=== PATIENT | male | born 1945 | race Two or more races ===

== ENCOUNTER → 2017-09-18 17:23 | Outpatient (CLI) | payer OTHER ==
[~2017-09-18] VITALS: Ht 152.4 cm; Wt 127.0 kg
[~2017-09-18 17:23] MED LIST: COZAAR50 MG; GABAPENTIN300 MG PO; GLIMEPIRIDE2 MG; ISOSORBIDE DINI30 MG; JANUMET 50-1,01 EACH PO; LIPITOR40 MG; LOPRESSOR25 MG PO; PLAVIX75 MG; PROSCAR5 MG; PROTONIX40 M1; TAMS0.4C; ZYLOPRIM300 MG
== END | disposition home or self-care (01) ==
LOC: PPHC 17:23
DX: M54.5 Low back pain (principal); Z76.0 Encounter for issue of repeat prescription

== ENCOUNTER → 2018-01-09 | Outpatient (CLI) | payer OTHER | END | disposition home or self-care (01) | LOC: PPHC 13:39 | DX: M54.2 Cervicalgia (principal); Z01.89 Encounter for other specified special examinations ==

== ENCOUNTER 2018-05-25 12:29 | Outpatient (CLI) | payer OTHER | END 2018-05-25 13:00 | disposition home or self-care (01) | LOC: SONOGRAMA 12:29 | DX: N20.0 Calculus of kidney (principal) ==

== ENCOUNTER 2018-09-09 14:03 | Outpatient (CLI) | payer OTHER | END 2018-09-09 14:19 | disposition home or self-care (01) | LOC: NUCLEAR 14:03 | DX: R42 Dizziness and giddiness (principal); I65.23 Occlusion and stenosis of bilateral carotid arteries ==

== ENCOUNTER 2018-10-12 10:01 | Outpatient (CLI) | payer OTHER | END 2018-10-12 10:03 | disposition home or self-care (01) | LOC: SONOGRAMA 10:01 | DX: N20.0 Calculus of kidney (principal) ==

== ENCOUNTER 2018-11-18 15:09 | Outpatient (CLI) | payer OTHER | END 2018-11-18 15:23 | disposition home or self-care (01) | LOC: RAD 501 15:09 | DX: R05 Cough (principal) ==

== ENCOUNTER → 2019-04-16 | Outpatient (CLI) | payer OTHER | END | disposition home or self-care (01) | LOC: RAD 16:00 | DX: M16.11 Unilateral primary osteoarthritis, right hip (principal) ==

== ENCOUNTER 2019-08-04 10:25 | Outpatient (CLI) | payer OTHER | END 2019-08-04 15:18 | disposition home or self-care (01) | LOC: TOM 10:25 | DX: J44.1 Chronic obstructive pulmonary disease with (acute) exacerbation (principal); F17.218 Nicotine dependence, cigarettes, with other nicotine-induced disorders ==

== ENCOUNTER 2019-09-21 11:19 | Outpatient (CLI) | payer OTHER | END 2019-09-21 11:21 | disposition home or self-care (01) | LOC: SONOGRAMA 11:19 | DX: N20.0 Calculus of kidney (principal); R31.29 Other microscopic hematuria ==

== ENCOUNTER → 2020-04-28 | Outpatient (CLI) | payer OTHER | END | disposition home or self-care (01) | LOC: RAD 12:32 | PROVIDERS: ATTEND General Practice | DX: R05 Cough (principal) ==

== ENCOUNTER 2020-08-23 13:02 | Outpatient (CLI) | payer OTHER | END 2020-08-23 13:13 | disposition home or self-care (01) | LOC: NUCLEAR 13:02 | PROVIDERS: ATTEND Physical Medicine & Rehabilitation | DX: I65.23 Occlusion and stenosis of bilateral carotid arteries (principal) ==

== ENCOUNTER 2020-08-23 15:31 | Outpatient (CLI) | payer OTHER | END 2020-08-23 15:43 | disposition home or self-care (01) | LOC: RAD 15:31 | PROVIDERS: ATTEND Physical Medicine & Rehabilitation | DX: M47.892 Other spondylosis, cervical region (principal); M54.2 Cervicalgia ==

== ENCOUNTER → 2020-09-04 | Outpatient (CLI) | payer OTHER | END | disposition home or self-care (01) | LOC: RAD 11:58 | PROVIDERS: ATTEND Urology | DX: N20.0 Calculus of kidney (principal); N30.00 Acute cystitis without hematuria; R31.1 Benign essential microscopic hematuria ==

== ENCOUNTER 2021-07-18 15:25 | Outpatient (CLI) | payer OTHER | END 2021-07-18 15:38 | disposition home or self-care (01) | LOC: RAD 15:25 | PROVIDERS: ATTEND Physical Medicine & Rehabilitation | DX: M54.59 Other low back pain (principal); M16.11 Unilateral primary osteoarthritis, right hip; M54.16 Radiculopathy, lumbar region ==

== ENCOUNTER 2021-07-30 15:03 | Outpatient (CLI) | payer OTHER | END 2021-07-30 15:18 | disposition home or self-care (01) | LOC: RAD 15:03 | PROVIDERS: ATTEND Urology | DX: N20.0 Calculus of kidney (principal); R31.1 Benign essential microscopic hematuria ==

== ENCOUNTER 2021-08-08 13:44 | Outpatient (CLI) | payer OTHER | END 2021-08-08 14:00 | disposition home or self-care (01) | LOC: RAD 13:44 | PROVIDERS: ATTEND Ophthalmology | DX: I10 Essential (primary) hypertension (principal); Z01.811 Encounter for preprocedural respiratory examination; H25.813 Combined forms of age-related cataract, bilateral ==

== ENCOUNTER 2022-01-10 14:43 | Outpatient (CLI) | payer OTHER | END 2022-01-10 14:51 | disposition home or self-care (01) | LOC: SONOGRAMA 14:43 | PROVIDERS: ATTEND Urology | DX: N20.0 Calculus of kidney (principal); R31.1 Benign essential microscopic hematuria ==

== ENCOUNTER 2022-06-19 14:50 | Outpatient (CLI) | payer OTHER | END 2022-06-19 14:56 | disposition home or self-care (01) | LOC: RAD 14:50 | PROVIDERS: ATTEND Urology | DX: N20.0 Calculus of kidney (principal); R31.1 Benign essential microscopic hematuria ==

== ENCOUNTER 2022-10-09 14:45 | Outpatient (CLI) | payer OTHER | END 2022-10-09 14:52 | disposition home or self-care (01) | LOC: RAD 14:45 | PROVIDERS: ATTEND Physical Medicine & Rehabilitation | DX: M54.2 Cervicalgia (principal) ==

== ENCOUNTER 2022-10-18 16:13 | Outpatient (CLI) | payer OTHER | END 2022-10-18 16:17 | disposition home or self-care (01) | LOC: RAD 16:13 | PROVIDERS: ATTEND Urology | DX: N20.0 Calculus of kidney (principal); R31.1 Benign essential microscopic hematuria; N20.1 Calculus of ureter ==

== ENCOUNTER → 2022-10-21 | Outpatient (CLI) | payer OTHER | END | disposition home or self-care (01) | LOC: SONOGRAMA 13:53 | PROVIDERS: ATTEND Urology | DX: N20.0 Calculus of kidney (principal); R31.1 Benign essential microscopic hematuria; N20.1 Calculus of ureter ==

== ENCOUNTER 2022-10-29 07:26 | Outpatient (CLI) | payer OTHER | END 2022-10-29 07:29 | disposition home or self-care (01) | LOC: NUCLEAR 07:26 | PROVIDERS: ATTEND Internal Medicine Endocrinology, Diabetes & Metabolism | DX: E05.10 Thyrotoxicosis with toxic single thyroid nodule without thyrotoxic crisis or storm (principal) | CPT/HCPCS: 78014; A9528 ==

== ENCOUNTER 2022-10-30 09:10 | Outpatient (CLI) | payer OTHER | END 2022-10-30 09:11 | disposition home or self-care (01) | LOC: NUCLEAR 09:10 | PROVIDERS: ATTEND Internal Medicine Endocrinology, Diabetes & Metabolism | DX: E05.10 Thyrotoxicosis with toxic single thyroid nodule without thyrotoxic crisis or storm (principal) | CPT/HCPCS: 78014; A9528 ==

== ENCOUNTER 2022-11-25 11:24 | Outpatient (CLI) | payer OTHER | END 2022-11-25 11:29 | disposition home or self-care (01) | LOC: TOM 11:24 | PROVIDERS: ATTEND Urology | DX: N20.0 Calculus of kidney (principal) ==

== ENCOUNTER 2023-10-16 14:29 | Outpatient (CLI) | payer OTHER | END 2023-10-16 14:33 | disposition home or self-care (01) | LOC: RAD 14:29 | DX: M99.01 Segmental and somatic dysfunction of cervical region (principal); M99.02 Segmental and somatic dysfunction of thoracic region; M99.03 Segmental and somatic dysfunction of lumbar region; M99.04 Segmental and somatic dysfunction of sacral region; M99.05 Segmental and somatic dysfunction of pelvic region ==

== ENCOUNTER 2023-12-15 14:27 | Outpatient (CLI) | payer OTHER | END 2023-12-15 14:34 | disposition home or self-care (01) | LOC: RAD 14:27 | PROVIDERS: ATTEND Urology | DX: N20.0 Calculus of kidney (principal); N40.1 Benign prostatic hyperplasia with lower urinary tract symptoms; N39.41 Urge incontinence ==

== ENCOUNTER 2024-06-21 14:53 | Outpatient (CLI) | payer OTHER | END 2024-06-21 15:06 | disposition home or self-care (01) | LOC: SONOGRAMA 14:53 | PROVIDERS: ATTEND Urology | DX: N40.1 Benign prostatic hyperplasia with lower urinary tract symptoms (principal); N39.41 Urge incontinence; N20.0 Calculus of kidney; N40.0 Benign prostatic hyperplasia without lower urinary tract symptoms ==

== ENCOUNTER 2024-11-22 14:33 | Outpatient (CLI) | payer OTHER | END 2024-11-22 14:42 | disposition home or self-care (01) | LOC: RAD 14:33 | PROVIDERS: ATTEND Urology | DX: N40.1 Benign prostatic hyperplasia with lower urinary tract symptoms (principal); R33.9 Retention of urine, unspecified; N32.81 Overactive bladder; N20.0 Calculus of kidney; N40.0 Benign prostatic hyperplasia without lower urinary tract symptoms ==

== ENCOUNTER 2025-05-16 14:32 | Outpatient (CLI) | payer OTHER | END 2025-05-16 14:36 | disposition home or self-care (01) | LOC: SONOGRAMA 14:32 | PROVIDERS: ATTEND Urology | DX: N40.0 Benign prostatic hyperplasia without lower urinary tract symptoms (principal); N20.0 Calculus of kidney; R31.1 Benign essential microscopic hematuria; R33.9 Retention of urine, unspecified ==